=== PATIENT | female | born 1960 | race Two or more races ===

== ENCOUNTER 2017-10-13 08:30 | Emergency (ER) | payer OTHER ==
[~2017-10-13] VITALS: Ht 167.6 cm; Wt 68.0 kg
[~2017-10-13 08:30] MED LIST: DIAZEPAM10 MG PO; MEDROL4 MG PO
[2017-10-13] MEDS ORDERED: OMEPRAZOLE20 M1 PO (15:55)
[2017-10-13] MEDS ORDERED: LEVSIN/SL0.125 MG PO (15:55)
[2017-10-13] MEDS ORDERED: PEPCID AC20 MG PO (15:55)
== END 2017-10-13 20:22 | disposition home or self-care (01) ==
LOC: ER 08:30
DX: R07.89 Other chest pain (principal); K29.70 Gastritis, unspecified, without bleeding